=== PATIENT | male | born 1970 | race Caucasian/White ===

== ENCOUNTER → 2016-07-13 | Outpatient (CLI) | payer BC ==
[~2016-07-13] MED LIST: GLUCTAB32 PO; GLUT500C4 PO; MULT-506 PO; NXM/40 PO
== END | disposition home or self-care (01) ==
LOC: C.RDSM 08:55
PROVIDERS: ATTEND Physical Medicine & Rehabilitation Sports Medicine
DX: M25.852 Other specified joint disorders, left hip (principal)

== ENCOUNTER → 2017-05-18 | Outpatient (CLI) | payer BC ==
--- NOTE | 2017-05-18 14:33 | DIAGNOSTIC IMAGING REPORT ---
R LOWER EXTREMITY WITHOUT HISTORY: 46 years-old Male SPRAIN OF TIBULAR FIBULAR LIGAMENT OF RIGHT ANKLE acute right ankle sprain with pain COMPARISON: None available TECHNIQUE: Multiple axial CT images of the right lower extremity were obtained without contrast. Additional 3-D rendered images were generated from a separate workstation. A dose lowering technique was used consistent with the principals of AMANDA. FINDINGS: The distal tibia appears intact. Small acute avulsion fracture involves the distal fibula with a 7 mm bone fragment seen on image 127 series 3 in the expected region of the anterior talofibular ligament. There is a 4 x 4 mm osteochondral defect noted involving the posterior medial portion of the talar dome as seen on image 83 series 300 and image 51 series 301 with suggestion of a unstable 2 mm bone fragment noted centrally. Note is made of os peroneum. Mild dorsal spurring about the midfoot. Moderate sized enthesophytes about the calcaneus. There is an acute appearing nondisplaced fracture with mild comminution involving the base of the second metatarsal nicely seen on image 221 series 3 with fracture extension into the proximal articular surface. Additionally, there are acute appearing nondisplaced intra-articular fractures involving the base of the third and fourth metatarsals. The phalanges appear intact. There is a 2 mm punctate bone fragment adjacent to the dorsal aspect of the first metatarsal base as seen on image 50 series 301. Punctate bone fragments are seen adjacent to the lateral aspect of the dorsal first cuneiform, image 197 series 3 within the expected region of the Lisfranc ligament dorsal band insertion site. The second cuneiform appears intact. There is a subtle acute nondisplaced fracture involving the dorsal aspect of the third cuneiform, image 212 series 3. Cuboid appears intact. The dorsal, interosseous and volar portions of the Lisfranc ligament are not well seen by CT. No definite midfoot joint space widening to suggest complete Lisfranc ligament disruption. Mild dorsal forefoot soft tissue swelling is noted with mild soft tissue swelling about the ankle. IMPRESSION: 1. Multiple acute fractures of the mid foot including subtle probable avulsion fractures of the first cuneiform and dorsal base of the first metatarsal. Additionally, acute mildly comminuted nondisplaced intra-articular fractures involve the bases of the second, third and fourth metatarsals and third cuneiform. 2. Acute nondisplaced small avulsion fracture of the distal fibula within the region of the anterior talofibular ligament attachment site. 3. Fractures are seen within the expected region of the Lisfranc ligament without midfoot joint space widening identified. Correlation with MRI recommended. 4. Mild soft tissue swelling about the midfoot and ankle. 5. 4 x 4 mm osteochondral defect of the posterior medial talar dome with possible unstable fragment. The above report was generated using voice recognition software. It may contain grammatical, syntax or spelling errors. Electronically signed by: Joe Valentin M.D. 05/18/2017 2:32 PM Dictated Date/Time: 05/18/2017 1:09 PM
== END | disposition home or self-care (01) ==
LOC: C.CTS 12:31
PROVIDERS: ATTEND Physician Assistant
DX: S99.921A Unspecified injury of right foot, initial encounter (principal); S93.431A Sprain of tibiofibular ligament of right ankle, initial encounter; X58.XXXA Exposure to other specified factors, initial encounter

== ENCOUNTER → 2017-06-02 | Outpatient (CLI) | payer BC ==
--- NOTE | 2017-06-02 09:17 | DIAGNOSTIC IMAGING REPORT ---
R ANKLE MIN 3 VIEWS CLINICAL HISTORY: RIGHT FOOT/ANKLE PAIN pain COMPARISON: None. DISCUSSION: The bones and joint spaces appear intact. There is no evidence of fracture, dislocation or bony disease. Small heel spur. No abnormal soft tissue calcifications. IMPRESSION: Heel spur. Otherwise negative study. The above report was generated using voice recognition software. It may contain grammatical, syntax or spelling errors. Electronically signed by: Alberto Baldwin M.D. 06/02/2017 9:16 AM Dictated Date/Time: 06/02/2017 9:09 AM
--- NOTE | 2017-06-02 09:19 | DIAGNOSTIC IMAGING REPORT ---
R FOOT MIN 3 VIEWS HISTORY: 46 years-old Male RIGHT FOOT/ANKLE PAIN acute right foot and ankle pain COMPARISON: Right ankle radiographs of same day, right foot CT 05/18/2017 TECHNIQUE: 3 views of the right foot FINDINGS: Mild soft tissue swelling about the forefoot. Moderate plantar and small Achilles enthesophytes. No widening identified within the mid foot to suggest Lisfranc ligament disruption. The previously noted multiple forefoot and midfoot fractures seen on study dated 05/18/2017 are not well appreciated on this study. Mild marginal spurring about the tibiotalar joint. The previously noted osteochondral defect of the talar dome is also not well seen. No new fracture or subluxation identified. IMPRESSION: 1. The previously noted multiple subtle acute fractures about the midfoot and forefoot as seen on comparison CT are not well-seen on this study. There is however mild persistent forefoot soft tissue swelling. 2. Mild degenerative changes as above. The above report was generated using voice recognition software. It may contain grammatical, syntax or spelling errors. Electronically signed by: Joe Valentin M.D. 06/02/2017 9:17 AM Dictated Date/Time: 06/02/2017 9:14 AM
== END | disposition home or self-care (01) ==
LOC: C.RDSM 09:04
PROVIDERS: ATTEND Physician Assistant
DX: M25.571 Pain in right ankle and joints of right foot (principal); M79.671 Pain in right foot; M77.31 Calcaneal spur, right foot

== ENCOUNTER → 2017-06-23 | Outpatient (CLI) | payer BC ==
--- NOTE | 2017-06-23 09:22 | DIAGNOSTIC IMAGING REPORT ---
R FOOT MIN 3 VIEWS, R ANKLE MIN 3 VIEWS CLINICAL HISTORY: 46 years-old Male presenting with RIGHT FOOT/ANKLE PAIN. TECHNIQUE: Frontal, oblique, and lateral views of the right foot and frontal, mortise, and lateral views of the right ankle were obtained. COMPARISON: 06/02/2017. FINDINGS: Right foot: Osteopenia may be present. The bases of the metatarsals align appropriately with the tarsal bones. Tiny calcification in the region of the Lisfranc ligament is unchanged. No focal fracture plane is visible. Os peroneum noted. Prominent enthesophyte at the origin of the plantar fascia. Right ankle: No fracture fragment is identified. No fracture plane. Ankle mortise intact. The previously reported osteochondral lesion at the posterior medial talar dome is minimally apparent on radiograph and unchanged from prior. No degenerative change. Prominent enthesophyte at the origin of the plantar fascia. Os peroneum noted. IMPRESSION: 1. No fracture planes visible in the right foot or ankle. 2. Despite calcification at the Lisfranc ligament suggesting fracture fragment, no malalignment of the tarsometatarsal articulations. This suggests an intact Lisfranc ligament. 3. Minimally apparent osteochondral lesion at the talar dome. 4. No acute osseous injury. Electronically signed by: Cuate Light M.D. 06/23/2017 9:21 AM Dictated Date/Time: 06/23/2017 9:16 AM
== END | disposition home or self-care (01) ==
LOC: C.RDSM 17:05
PROVIDERS: ATTEND Physician Assistant
DX: T14.8XXA Other injury of unspecified body region, initial encounter (principal); X58.XXXA Exposure to other specified factors, initial encounter

== ENCOUNTER → 2017-08-04 | Outpatient (CLI) | payer BC ==
--- NOTE | 2017-08-04 08:44 | DIAGNOSTIC IMAGING REPORT ---
R FOOT MIN 3 VIEWS CLINICAL HISTORY: 46 years-old Male presenting with RIGHT FOOT FX. TECHNIQUE: Frontal, oblique, and lateral views of the right foot were obtained. COMPARISON: 06/23/2017. FINDINGS: Osteopenia. Enthesophyte at the inferior calcaneus. Os peroneum. Previous seen noted fractures at the bases of the second through fourth metatarsals, in the midfoot, in the region of the Lisfranc ligament are not apparent. No acute fracture or malalignment. No advanced degenerative change. No radiographic soft tissue abnormality. IMPRESSION: Previously noted fractures on CT from 05/18/2017 are not radiographically apparent. No malalignment. No acute osseous injury. Electronically signed by: Cuate Light M.D. 08/04/2017 8:43 AM Dictated Date/Time: 08/04/2017 8:40 AM
== END | disposition home or self-care (01) ==
LOC: C.RDSM 17:08
PROVIDERS: ATTEND Physician Assistant
DX: T14.8XXA Other injury of unspecified body region, initial encounter (principal); X58.XXXA Exposure to other specified factors, initial encounter